=== PATIENT | female | born 1965 | race African-American/Black ===

== ENCOUNTER 2021-03-30 01:38 | Emergency (ER) | payer MEDICAID ==
[~2021-03-30] VITALS: Ht 157.5 cm; Wt 64.0 kg
[2021-03-30] MEDS ORDERED: PROPARACAINE HCL 0.5% 15 ML OPHTHALMIC SOLUTION OU ONE (02:00)
[2021-03-30] MEDS ORDERED: APIX5TAB PO (02:00)
[2021-03-30] MEDS ORDERED: AMLO-257 PO (02:00)
[2021-03-30] MEDS ORDERED: ACETAMINOPHEN 325 MG TABLET PO ONE (02:00)
[2021-03-30] MEDS ORDERED: FLUORESCEIN SODIUM 1 MG STRIP OU ONE (02:00)
[2021-03-30 02:38] VITALS: BP 162/104
[2021-03-30 02:47] LABS: BASOPHILS % (AUTO) 0.8 % (0.0-2.0); EOSINOPHILS % (AUTO) 2.5 % (1.0-6.0); HEMATOCRIT 38.6 % (36-46); HEMOGLOBIN 12.9 g/dL (12.0-16.0); LYMPHOCYTES # (AUTO) 2.3 K/uL (1.0-4.8); MEAN CORPUSCULAR HEMOGLOBIN 29.8 pg (26.0-34.0); MEAN CORPUSCULAR HGB CONC 33.6 G/dL (31.0-37.0); MEAN CORPUSCULAR VOLUME 89 fL (80-100); MONOCYTES # (AUTO) 0.5 K/uL (0.1-1.0); MONOCYTES % (AUTO) 11.7 % (2.0-9.0); NEUTROPHILS # (AUTO) 1.4 K/uL (1.8-7.7); PLATELET COUNT (AUTO) 171 K/uL (150-450); RED BLOOD CELL COUNT(AUTO) 4.35 MIL/uL (4.00-5.20); RED CELL DISTRIBUTION WIDTH 13.8 % (11.5-14.5)
[2021-03-30 02:56] LABS: ANION GAP 4 mmol/L (8-16); CALCIUM, TOTAL 9.1 mg/dL (8.8-10.5); CARBON DIOXIDE 32 mmol/L (22-29); CHLORIDE 103 mmol/L (98-107); CREATININE 0.65 mg/dL (0.60-1.30); GLOMERULAR FILTR. RATE CALC > 60 mL/min (>60); GLUCOSE,RANDOM 98 mg/dL (70-110); POTASSIUM 3.8 mmol/L (3.5-5.1); SODIUM SERUM 139 mmol/L (136-145); UREA NITROGEN, BLOOD 10 mg/dL (7-18)
[2021-03-30 03:07] LABS: ALANINE AMINOTRANSFERASE 39 U/L (12-78); ALBUMIN 3.7 g/dL (3.4-5.0); ALKALINE PHOSPHATASE 183 U/L (46-116); ASPARTATE AMINOTRANSFERASE 26 U/L (15-37); BILIRUBIN,TOTAL 0.4 mg/dL (0.1-1.0); HCG,QUANTITATIVE 2 mIU/mL (0-6); LIPASE 62 U/L (73-393); TOTAL PROTEIN, SERUM 7.6 g/dL (6.4-8.2)
== END 2021-03-30 04:00 | disposition home or self-care (01) ==
LOC: EMS 01:46
DX: R11.0 Nausea (principal); H57.89 Other specified disorders of eye and adnexa; Z79.899 Other long term (current) drug therapy
CPT/HCPCS: 80053; 83690; 84702; 85025; 99284

== ENCOUNTER 2021-04-08 17:00 | Emergency (ER) | payer MEDICAID ==
[~2021-04-08] VITALS: Ht 157.5 cm; Wt 76.4 kg
[~2021-04-08 17:00] MED LIST: AMLO-257 PO; APIX5TAB PO
[2021-04-08] MEDS ORDERED: LOSA-381 PO (17:29)
[2021-04-08] MEDS ORDERED: ACETAMINOPHEN 325 MG TABLET PO ONE (17:30)
[2021-04-08 17:57] LABS: BASOPHILS % (AUTO) 0.7 % (0.0-2.0); EOSINOPHILS % (AUTO) 2.6 % (1.0-6.0); HEMOGLOBIN 13.6 g/dL (12.0-16.0); LYMPHOCYTES # (AUTO) 2.1 K/uL (1.0-4.8); LYMPHOCYTES % (AUTO) 53.8 % (22.0-44.0); MEAN CORPUSCULAR HEMOGLOBIN 29.8 pg (26.0-34.0); MEAN CORPUSCULAR VOLUME 88 fL (80-100); MONOCYTES # (AUTO) 0.6 K/uL (0.1-1.0); MONOCYTES % (AUTO) 14.5 % (2.0-9.0); NEUTROPHILS # (AUTO) 1.1 K/uL (1.8-7.7); NEUTROPHILS % (AUTO) 28.4 % (40.0-70.0); PLATELET COUNT (AUTO) 204 K/uL (150-450); RED BLOOD CELL COUNT(AUTO) 4.56 MIL/uL (4.00-5.20)
[2021-04-08 18:03] LABS: ANION GAP 8 mmol/L (8-16); CALCIUM, TOTAL 8.7 mg/dL (8.8-10.5); CARBON DIOXIDE 30 mmol/L (22-29); CHLORIDE 101 mmol/L (98-107); CREATININE 0.77 mg/dL (0.60-1.30); GLOMERULAR FILTR. RATE CALC > 60 mL/min (>60); GLUCOSE,RANDOM 97 mg/dL (70-110); POTASSIUM 4.2 mmol/L (3.5-5.1); SODIUM SERUM 139 mmol/L (136-145); UREA NITROGEN, BLOOD 13 mg/dL (7-18)
[2021-04-08 20:26] VITALS: BP 132/88
== END 2021-04-08 20:44 | disposition home or self-care (01) ==
LOC: EMS 17:05
DX: S09.90XA Unspecified injury of head, initial encounter (principal); S63.602A Unspecified sprain of left thumb, initial encounter; R55 Syncope and collapse; K02.9 Dental caries, unspecified; I10 Essential (primary) hypertension; Z79.899 Other long term (current) drug therapy; Z91.040 Latex allergy status; Z79.01 Long term (current) use of anticoagulants; W22.8XXA Striking against or struck by other objects, initial encounter; Y93.89 Activity, other specified; Y92.89 Other specified places as the place of occurrence of the external cause; Y99.8 Other external cause status
CPT/HCPCS: 70450; 80048; 85025; 93005; 99285

== ENCOUNTER 2021-04-13 19:09 | Emergency (ER) | payer MEDICAID ==
[~2021-04-13] VITALS: Ht 157.5 cm; Wt 75.9 kg
[~2021-04-13 19:09] MED LIST changes: +LOSA-381 PO
[2021-04-13] MEDS ORDERED: AMLO-257 PO (20:31)
[2021-04-13 21:27] VITALS: BP 138/88
== END 2021-04-13 22:00 | disposition home or self-care (01) ==
LOC: EMS 19:13
DX: J45.909 Unspecified asthma, uncomplicated (principal); I10 Essential (primary) hypertension; Z91.040 Latex allergy status
CPT/HCPCS: 93005; 99285; Z7502

== ENCOUNTER 2021-04-18 19:16 | Emergency (ER) | payer MEDICAID ==
[~2021-04-18] VITALS: Ht 157.5 cm; Wt 75.9 kg
[2021-04-18 19:19] VITALS: BP 150/98
[2021-04-18] MEDS ORDERED: CARBAMIDE PEROXIDE 6.5% 15 ML OTIC SOLUTION AD ONE (20:15)
== END 2021-04-18 20:33 | disposition home or self-care (01) ==
LOC: EMS 19:20
DX: H61.21 Impacted cerumen, right ear (principal); I10 Essential (primary) hypertension; Z79.899 Other long term (current) drug therapy; Z91.040 Latex allergy status
CPT/HCPCS: 69209; 99282; Z7502; Z7610

== ENCOUNTER 2021-04-20 00:11 | Emergency (ER) | payer MEDICAID ==
[~2021-04-20] VITALS: Ht 157.5 cm; Wt 77.3 kg
[2021-04-20 02:38] VITALS: BP 130/75
== END 2021-04-20 05:54 | disposition home or self-care (01) ==
LOC: EMS 00:13
DX: R06.00 Dyspnea, unspecified (principal); Z79.899 Other long term (current) drug therapy; Z91.040 Latex allergy status
CPT/HCPCS: 99283; Z7502

== ENCOUNTER 2021-04-22 22:47 | Emergency (ER) | payer MEDICAID ==
[~2021-04-22] VITALS: Ht 157.5 cm; Wt 85.0 kg
[2021-04-23 00:09] LABS: COVID AG,FIA SOURCE NASAL SWAB
[2021-04-23 00:34] LABS: INFLUENZA TYPE A NEGATIVE FOR TYPE A (NEGATIVE); INFLUENZA TYPE B NEGATIVE FOR TYPE B (NEGATIVE)
[2021-04-23 01:06] VITALS: BP 141/85
== END 2021-04-23 01:28 | disposition home or self-care (01) ==
LOC: EMS 22:54
DX: Z20.822 Contact with and (suspected) exposure to COVID-19 (principal); Z91.040 Latex allergy status; Z79.899 Other long term (current) drug therapy
CPT/HCPCS: 87804; 99283

== ENCOUNTER 2021-04-29 14:32 | Emergency (ER) | payer MEDICAID ==
[~2021-04-29] VITALS: Ht 157.5 cm; Wt 77.0 kg
[2021-04-29 15:53] VITALS: BP 134/84
[2021-04-29] MEDS ORDERED: SODIUM CHLORIDE 0.9% 1,000 ML IV ONE (16:30)
[2021-04-29] MEDS ORDERED: LOSA-382 PO (18:40)
== END 2021-04-29 17:00 | disposition left against medical advice (07) ==
LOC: EMS 14:32
DX: R10.30 Lower abdominal pain, unspecified (principal); I10 Essential (primary) hypertension; Z79.899 Other long term (current) drug therapy; Z91.040 Latex allergy status
CPT/HCPCS: 99281

== ENCOUNTER 2021-04-30 20:26 | Emergency (ER) | payer MEDICAID ==
[~2021-04-30] VITALS: Ht 157.5 cm; Wt 78.0 kg
[~2021-04-30 20:26] MED LIST changes: -LOSA-381 PO; +LOSA-382 PO
[2021-05-01] MEDS ORDERED: MINERAL OIL 133 ML ENEMA PR ONE (04:00)
[2021-05-01] MEDS ORDERED: MAGNESIUM CITRATE 300 ML ORAL SOLUTION PO ONE (04:15)
[2021-05-01 05:16] VITALS: BP 135/75
== END 2021-05-01 06:11 | disposition home or self-care (01) ==
LOC: EMS 20:30
DX: K59.00 Constipation, unspecified (principal); I10 Essential (primary) hypertension; Z91.040 Latex allergy status
CPT/HCPCS: 99284; Z7502; Z7610

== ENCOUNTER 2021-05-03 23:39 | Emergency (ER) | payer MEDICAID ==
[~2021-05-03] VITALS: Ht 157.5 cm; Wt 76.4 kg
[2021-05-04 00:43] LABS: HEMOGLOBIN 12.1 g/dL (12.0-16.0); MEAN CORPUSCULAR HGB CONC 33.9 G/dL (31.0-37.0); PLATELET COUNT (AUTO) 175 K/uL (150-450)
[2021-05-04 00:49] LABS: BASOPHILS % (AUTO) 0.9 % (0.0-2.0); EOSINOPHILS % (AUTO) 2.6 % (1.0-6.0); HEMATOCRIT 35.8 % (36-46); LYMPHOCYTES # (AUTO) 2.1 K/uL (1.0-4.8); LYMPHOCYTES % (AUTO) 52.9 % (22.0-44.0); MEAN CORPUSCULAR VOLUME 88 fL (80-100); MONOCYTES # (AUTO) 0.4 K/uL (0.1-1.0); MONOCYTES % (AUTO) 9.3 % (2.0-9.0); NEUTROPHILS # (AUTO) 1.4 K/uL (1.8-7.7); NEUTROPHILS % (AUTO) 34.3 % (40.0-70.0); RED BLOOD CELL COUNT(AUTO) 4.05 MIL/uL (4.00-5.20); RED CELL DISTRIBUTION WIDTH 14.6 % (11.5-14.5)
[2021-05-04 00:52] LABS: ANION GAP 6 mmol/L (8-16); CALCIUM, TOTAL 9.1 mg/dL (8.8-10.5); CARBON DIOXIDE 31 mmol/L (22-29); CHLORIDE 101 mmol/L (98-107); CREATININE 0.78 mg/dL (0.60-1.30); GLOMERULAR FILTR. RATE CALC > 60 mL/min (>60); GLUCOSE,RANDOM 99 mg/dL (70-110); POTASSIUM 3.1 mmol/L (3.5-5.1); SODIUM SERUM 138 mmol/L (136-145); UREA NITROGEN, BLOOD 14 mg/dL (7-18)
[2021-05-04 00:57] LABS: ALANINE AMINOTRANSFERASE 36 U/L (12-78); ALBUMIN 3.4 g/dL (3.4-5.0); ALKALINE PHOSPHATASE 140 U/L (46-116); ASPARTATE AMINOTRANSFERASE 28 U/L (15-37); BILIRUBIN,TOTAL 0.5 mg/dL (0.1-1.0); TOTAL PROTEIN, SERUM 7.1 g/dL (6.4-8.2)
[2021-05-04 03:45] VITALS: BP 119/78
== END 2021-05-04 04:23 | disposition home or self-care (01) ==
LOC: EMS 23:40
DX: R07.89 Other chest pain (principal); I10 Essential (primary) hypertension; Z91.040 Latex allergy status; Z79.899 Other long term (current) drug therapy
CPT/HCPCS: 71045; 80053; 84484; 85025; 93005; 99285; 36415-L1; 36415-TC

== ENCOUNTER 2021-05-05 20:06 | Emergency (ER) | payer MEDICAID ==
[~2021-05-05] VITALS: Ht 157.5 cm; Wt 76.4 kg
[2021-05-06] MEDS ORDERED: CLOTRIMAZOLE 1% 15 GM CREAM TP ONE
[2021-05-06] MEDS ORDERED: POLY15DR29 OU (00:03)
[2021-05-06] MEDS ORDERED: SULF1TAB41 PO (00:03)
[2021-05-06 00:14] VITALS: BP 132/85
== END 2021-05-06 00:42 | disposition home or self-care (01) ==
LOC: EMS 20:06
DX: R07.89 Other chest pain (principal); R10.84 Generalized abdominal pain; H04.123 Dry eye syndrome of bilateral lacrimal glands; I10 Essential (primary) hypertension; Z76.5 Malingerer [conscious simulation]; Z91.040 Latex allergy status; Z79.899 Other long term (current) drug therapy
CPT/HCPCS: 99282

== ENCOUNTER 2021-05-09 04:31 | Emergency (ER) | payer MEDICAID ==
[~2021-05-09] VITALS: Ht 165.1 cm; Wt 80.0 kg
[~2021-05-09 04:31] MED LIST changes: +POLY15DR29 OU; +SULF1TAB41 PO
[2021-05-09 04:35] VITALS: BP 134/71
== END 2021-05-09 05:00 | disposition home or self-care (01) ==
LOC: EMS 04:32
DX: I10 Essential (primary) hypertension (principal); Z76.0 Encounter for issue of repeat prescription; M48.00 Spinal stenosis, site unspecified; M41.9 Scoliosis, unspecified; Z98.890 Other specified postprocedural states; Z91.040 Latex allergy status; Z86.79 Personal history of other diseases of the circulatory system; Z87.09 Personal history of other diseases of the respiratory system; Z87.42 Personal history of other diseases of the female genital tract; Z87.19 Personal history of other diseases of the digestive system
CPT/HCPCS: 99281; Z7502

== ENCOUNTER 2021-05-10 20:20 | Emergency (ER) | payer MEDICAID ==
[~2021-05-10] VITALS: Ht 162.6 cm; Wt 63.0 kg
[2021-05-11 01:20] VITALS: BP 139/83
[2021-05-11] MEDS ORDERED: CLOTRIMAZOLE 1% 15 GM CREAM TP ONE (01:30)
[2021-05-11] MEDS ORDERED: DEXTRAN 70 0.1%/HYPROMELL 0.3% 0.9 ML OPHTHALMIC SOLUTION [PF] OU ONE (01:30)
[2021-05-11] MEDS ORDERED: OXYM30SP27 NASAL (01:33)
[2021-05-11] MEDS ORDERED: HYPR15DR23 OU (01:33)
== END 2021-05-11 02:07 | disposition home or self-care (01) ==
LOC: EMS 20:23
DX: J06.9 Acute upper respiratory infection, unspecified (principal); H04.123 Dry eye syndrome of bilateral lacrimal glands; L30.9 Dermatitis, unspecified; I10 Essential (primary) hypertension; Z59.00 Homelessness unspecified; Z91.040 Latex allergy status
CPT/HCPCS: 99283

== ENCOUNTER 2021-05-16 22:02 | Emergency (ER) | payer MEDICAID ==
[~2021-05-16] VITALS: Ht 157.5 cm; Wt 70.5 kg
[~2021-05-16 22:02] MED LIST changes: +HYPR15DR23 OU; +OXYM30SP27 NASAL
[2021-05-16] MEDS ORDERED: ACETAMINOPHEN 500 MG TABLET PO ONE (23:00)
[2021-05-17 00:19] VITALS: BP 147/75
== END 2021-05-17 00:40 | disposition home or self-care (01) ==
LOC: EMS 22:02
DX: R51.9 Headache, unspecified (principal); I10 Essential (primary) hypertension; M48.00 Spinal stenosis, site unspecified; M41.9 Scoliosis, unspecified; Z59.00 Homelessness unspecified; Z86.79 Personal history of other diseases of the circulatory system; Z87.09 Personal history of other diseases of the respiratory system; Z87.42 Personal history of other diseases of the female genital tract; Z87.19 Personal history of other diseases of the digestive system; Z98.890 Other specified postprocedural states; Z91.040 Latex allergy status
CPT/HCPCS: 99282; Z7502; Z7610

== ENCOUNTER 2021-05-26 21:48 | Emergency (ER) | payer SELFPAY ==
[~2021-05-26] VITALS: Ht 157.5 cm; Wt 70.5 kg
[2021-05-26] MEDS ORDERED: SODIUM CHLORIDE 0.9% 1,000 ML IV ONE (22:45)
[2021-05-26] MEDS ORDERED: ACETAMINOPHEN 500 MG TABLET PO ONE (23:00)
[2021-05-26 23:13] LABS: BASOPHILS % (AUTO) 0.5 % (0.0-2.0); EOSINOPHILS % (AUTO) 1.6 % (1.0-6.0); HEMATOCRIT 35.9 % (36-46); HEMOGLOBIN 12.1 g/dL (12.0-16.0); LYMPHOCYTES % (AUTO) 24.7 % (22.0-44.0); MEAN CORPUSCULAR HEMOGLOBIN 30.1 pg (26.0-34.0); MEAN CORPUSCULAR HGB CONC 33.6 G/dL (31.0-37.0); MEAN CORPUSCULAR VOLUME 90 fL (80-100); MONOCYTES # (AUTO) 0.5 K/uL (0.1-1.0); MONOCYTES % (AUTO) 13.2 % (2.0-9.0); NEUTROPHILS # (AUTO) 2.4 K/uL (1.8-7.7); PLATELET COUNT (AUTO) 150 K/uL (150-450); RED BLOOD CELL COUNT(AUTO) 4.01 MIL/uL (4.00-5.20); RED CELL DISTRIBUTION WIDTH 14.3 % (11.5-14.5)
[2021-05-26 23:20] LABS: ANION GAP 8 mmol/L (8-16); CALCIUM, TOTAL 8.4 mg/dL (8.8-10.5); CARBON DIOXIDE 27 mmol/L (22-29); CHLORIDE 103 mmol/L (98-107); CREATININE 0.87 mg/dL (0.60-1.30); GLOMERULAR FILTR. RATE CALC > 60 mL/min (>60); GLUCOSE,RANDOM 100 mg/dL (70-110); POTASSIUM 3.5 mmol/L (3.5-5.1); SODIUM SERUM 138 mmol/L (136-145); UREA NITROGEN, BLOOD 21 mg/dL (7-18)
[2021-05-26 23:25] LABS: ALANINE AMINOTRANSFERASE 32 U/L (12-78); ALBUMIN 3.3 g/dL (3.4-5.0); ALKALINE PHOSPHATASE 175 U/L (46-116); ASPARTATE AMINOTRANSFERASE 25 U/L (15-37); BILIRUBIN,TOTAL 0.3 mg/dL (0.1-1.0); TOTAL PROTEIN, SERUM 6.8 g/dL (6.4-8.2)
[2021-05-26 23:50] LABS: COVID AG,FIA SOURCE NASAL SWAB
[2021-05-27 01:01] VITALS: BP 129/88
== END 2021-05-27 01:36 | disposition home or self-care (01) ==
LOC: EMS 21:48
DX: B34.9 Viral infection, unspecified (principal); I10 Essential (primary) hypertension; Z91.040 Latex allergy status; Z79.899 Other long term (current) drug therapy; Z20.822 Contact with and (suspected) exposure to COVID-19
CPT/HCPCS: 36415; 71045; 80053; 84484; 85025; 87426; 93005; 99285; J7030

== ENCOUNTER 2021-06-18 22:56 | Emergency (ER) | payer MEDICAID ==
[~2021-06-18] VITALS: Ht 157.5 cm; Wt 72.7 kg
[2021-06-18 23:05] VITALS: BP 127/84
[2021-06-19] MEDS ORDERED: SULF-261 PO (00:02)
== END 2021-06-19 00:30 | disposition home or self-care (01) ==
LOC: EMS 23:01
DX: S80.862A Insect bite (nonvenomous), left lower leg, initial encounter (principal); L03.116 Cellulitis of left lower limb; I10 Essential (primary) hypertension; Z91.040 Latex allergy status; W57.XXXA Bitten or stung by nonvenomous insect and other nonvenomous arthropods, initial encounter; Y93.89 Activity, other specified; Y92.89 Other specified places as the place of occurrence of the external cause; Y99.8 Other external cause status
CPT/HCPCS: 99283; Z7502

== ENCOUNTER 2021-06-22 23:30 | Emergency (ER) | payer MEDICAID ==
[~2021-06-22] VITALS: Ht 160 cm; Wt 80.0 kg
[~2021-06-22 23:30] MED LIST changes: +SULF-261 PO
[2021-06-22 23:51] VITALS: BP 155/99
== END 2021-06-23 00:45 | disposition home or self-care (01) ==
LOC: EMS 23:31
DX: L30.9 Dermatitis, unspecified (principal); F41.9 Anxiety disorder, unspecified; I10 Essential (primary) hypertension; Z91.040 Latex allergy status
CPT/HCPCS: 99281; Z7502

== ENCOUNTER 2021-07-05 20:05 | Emergency (ER) | payer MEDICAID ==
[~2021-07-05] VITALS: Ht 157.5 cm; Wt 76.4 kg
[2021-07-05 21:59] VITALS: BP 124/69
== END 2021-07-05 22:19 | disposition home or self-care (01) ==
LOC: EMS 20:06
DX: H04.123 Dry eye syndrome of bilateral lacrimal glands (principal); I10 Essential (primary) hypertension; Z91.040 Latex allergy status; Z79.899 Other long term (current) drug therapy
CPT/HCPCS: 99282; Z7502

== ENCOUNTER 2021-08-06 00:11 | Emergency (ER) | payer MEDICAID ==
[~2021-08-06] VITALS: Ht 157.5 cm; Wt 76.4 kg
[2021-08-06] MEDS ORDERED: [UNRECOGNIZED DRUG - CODE] PO (04:31)
[2021-08-06] MEDS ORDERED: BISA-72 PO (04:33)
[2021-08-06 05:25] VITALS: BP 127/68
== END 2021-08-06 05:36 | disposition home or self-care (01) ==
LOC: EMS 00:11
DX: K59.00 Constipation, unspecified (principal); I10 Essential (primary) hypertension; Z79.899 Other long term (current) drug therapy; Z91.040 Latex allergy status
CPT/HCPCS: 74019; 99283